=== PATIENT | female | born 1985 | race Caucasian/White ===

== ENCOUNTER → 2023-10-14 11:02 | Outpatient (REF) | payer OTHER, SELFPAY | LOC: RCS 11:02 | PROVIDERS: ATTENDING PHYSICIAN Family Medicine | DX: R07.89 Other chest pain (principal); R00.0 Tachycardia, unspecified | CPT/HCPCS: 93017 ==

== ENCOUNTER → 2023-11-13 10:21 | Outpatient (REF) | payer OTHER, SELFPAY | LOC: WDC 10:21 | PROVIDERS: ATTENDING PHYSICIAN Nurse Practitioner Family | DX: N64.59 Other signs and symptoms in breast (principal); R59.1 Generalized enlarged lymph nodes | CPT/HCPCS: 76642; 77062; 77066 ==